=== PATIENT | male | born 1980 | race African-American/Black ===

== ENCOUNTER 2024-04-30 11:55 | Emergency (ER) | payer OTHER ==
[~2024-04-30] VITALS: Ht 170.2 cm; Wt 60.0 kg
[2024-04-30] MEDS: HYDROcodone-ACET 7.5/325MG TAB PO ONE (13:48)
[2024-04-30] MEDS: KETOROLAC TROMETH 30 MG/ML 1ML VIAL IM ONE (13:48)
[2024-04-30 14:10] LABS: Basophils # (auto) 0 10 ^3/uL (0-0.2); Basophils % (auto) 0.5 % (0.0-2.0); Eosinophils # (auto) 0 10 ^3/uL (0-0.8); Eosinophils % (auto) 0.5 % (0.0-7.0); Hematocrit 46.4 % (41.0-53.0); Hemoglobin 15.4 g/dL (13.5-17.5); Lymphocytes # (auto) 2.3 10 ^3/uL (0.4-5.4); Lymphocytes % (auto) 32.3 % (10.0-50.0); Mean Corpuscular Hgb Conc. 33.1 g/dL (32.0-36.0); Mean Corpuscular Volume 81.6 fL (80.0-100.0); Monocytes # (auto) 0.8 10 ^3/uL (0-1.3); Monocytes % (auto) 10.8 % (0.0-12.0); Neutrophils % (auto) 55.9 % (37.0-80.0); Platelet Count (auto) 287 10^3/uL (140-450); Red Blood Cells 5.68 10^6/uL (4.5-5.90); Red Cell Distribution Width 15.1 % (11.8-14.3); White Blood Cell 7.2 10^3/uL (4.4-10.8)
[2024-04-30 15:30] LABS: Chloride 108 mmol/L (98-107); Sodium 141 mmol/L (136-145)
[2024-04-30 15:33] LABS: Anion Gap 6 (5-15); Calcium 9.7 mg/dL (8.7-10.4); Carbon Dioxide 27 mmol/L (20-31); Potassium 3.9 mmol/L (3.5-5.1)
[2024-04-30 15:38] LABS: Glucose 92 mg/dL (74-106)
[2024-04-30 15:41] LABS: BUN/Creatinine Ratio 10.8 (10.0-20.0); Blood Urea Nitrogen 10 mg/dL (9-23)
[2024-04-30] MEDS: IOHEXOL 300 MG/ML 100ML BOTTLE IJ ONE (15:53)
[2024-04-30] MEDS: LIDOCAINE 1% HCL (LOCAL ANESTH.) INJ 20ML MDV ID ONE (17:30)
[2024-04-30] MEDS ORDERED: IBUP-1455 PO (17:55)
[2024-04-30] MEDS ORDERED: BACDST PO (17:55)
[2024-04-30] MEDS ORDERED: CEPH500C PO (17:55)
[2024-04-30 18:11] VITALS: BP 140/90; PULSE 90; RESP 16; TEMP 97.7; O2SAT 100
[2024-04-30] MEDS: cefTRIAXone 1GM/50ML D5W 50 ML IV ONE (18:11)
== END 2024-04-30 18:37 | disposition home or self-care (01) ==
LOC: ER 11:55
DX: L02.512 Cutaneous abscess of left hand (principal); Z79.899 Other long term (current) drug therapy
CPT/HCPCS: 36415; 73130; 73201; 80048; 85025; 96365; 96372; 99285; J0696; J1885; J2003; Q9967